=== PATIENT | female | born 1985 | race Caucasian/White ===

== ENCOUNTER 2021-12-03 17:16 | Emergency (ER) | payer OTHER ==
[~2021-12-03] VITALS: Ht 149.9 cm; Wt 54.5 kg
[2021-12-03 17:18] VITALS: BP 146/92
[2021-12-03 19:52] LABS: COVID AG,FIA SOURCE NASOPHARYNGEAL
== END 2021-12-03 21:00 | disposition home or self-care (01) ==
LOC: EMS 17:20
DX: J02.9 Acute pharyngitis, unspecified (principal); R21 Rash and other nonspecific skin eruption; F31.9 Bipolar disorder, unspecified; M32.9 Systemic lupus erythematosus, unspecified; Z98.51 Tubal ligation status; F17.210 Nicotine dependence, cigarettes, uncomplicated; Z88.6 Allergy status to analgesic agent; Z88.8 Allergy status to other drugs, medicaments and biological substances; Z20.822 Contact with and (suspected) exposure to COVID-19
CPT/HCPCS: 87430; 99283